=== PATIENT | male | born 1990 ===

== ENCOUNTER 2017-04-26 05:29 | Emergency (ER) | payer OTHER ==
[2017-04-26 05:47] VITALS: BP 137/72
[2017-04-26] MEDS ORDERED: ASPIRIN PO ONE (05:47)
[2017-04-26] MEDS ORDERED: ZOFRAN ODT PO ONE (05:53)
[2017-04-26 06:06] LABS: Basophils # (Auto) 0.1 K/mm3 (0.0-0.1); Basophils % (Auto) 0.8 % (0.0-1.8); Eosinophils % (Auto) 0.3 % (0.0-4.3); Hematocrit 48.2 % (35.5-45.6); Hemoglobin 15.8 gm/dl (11.8-15.2); Lymphocytes % (Auto) 21.1 % (13.4-35.0); Mean Corpuscular HGB Conc 33 % (32-34); Mean Corpuscular Hemoglobin 31 pg (28-32); Mean Corpuscular Volume 94 fl (84-94); Monocytes # (Auto) 0.5 K/mm3 (0.0-0.8); Monocytes % (Auto) 5.1 % (0.0-7.3); Platelet Count 223 K/mm3 (140-440); Red Blood Count 5.15 M/mm3 (3.65-5.03); Red Cell Distribution Width 13.5 % (13.2-15.2)
[2017-04-26 06:25] LABS: Bilirubin,Urine NEG (Negative); Blood,Urine SM (Negative); Color,Urine Yellow (Yellow); Mucus,Urine FEW /HPF; Protein,Urine <15 mg/dL mg/dL (Negative); Urobilinogen,Urine < 2.0 mg/dL (<2.0)
[2017-04-26 06:26] LABS: BUN/Creatinine Ratio 9; Blood Urea Nitrogen 9 mg/dL (9-20); Calcium 8.7 mg/dL (8.4-10.2); Hemolysis Index 11
[2017-04-26] MEDS ORDERED: TYLENOL PO ONE (06:57)
[2017-04-26] MEDS ORDERED: PHENERGAN PO ONE (07:13)
--- NOTE | 2017-04-26 07:20 | XRay Report ---
FINAL REPORT EXAM: XR CHEST ROUTINE 2V HISTORY: chest pain TECHNIQUE: PA and lateral chest radiographs PRIORS: None. FINDINGS: No mediastinal shift. Cardiac silhouette is not enlarged. No pneumothorax, effusion, or focal pulmonary opacity. No acute skeletal finding. IMPRESSION: No focal pulmonary opacity.
--- NOTE | 2017-04-26 08:20 | Emergency Department Report ---
ED General Adult HPI - General Chief complaint: Chest Pain Stated complaint: CP; N/V Time Seen by Provider: 04/26/17 06:55 Source: patient Mode of arrival: Ambulatory Limitations: No Limitations - History of Present Illness Initial comments: Patient is a 27-year-old malesignificant past medical history who presents with left-sided chest pain has been going on for last 2 days. Patient states chest pain as a 6 out of 10 is an achy type of pain putting pressure on his chest makes it worse nothing makes it better. Patient also states that he has had some nausea and vomiting with the chest pain. The chest pain does not radiate anywhere he has not tried any [id number] medications for the pain. He says the pain occurred after he was lifting boxes at his house. - Related Data Previous Rx's Medication Instructions Recorded Last Taken Type Diclofenac Sodium [Voltaren] 100 gm TP Q6H #1 gel..gram. 04/26/17 Unknown Rx Promethazine [Phenergan TAB] 25 mg PO Q6HR PRN #20 tab 04/26/17 Unknown Rx Allergies Allergy/AdvReac Type Severity Reaction Status Date / Time No Known Allergies Allergy Verified 06/09/15 10:52 ED Review of Systems ROS: Stated complaint: CP; N/V Other details as noted in HPI Constitutional: denies: chills, fever Eyes: denies: eye pain, eye discharge, vision change ENT: denies: ear pain, throat pain Respiratory: denies: cough, shortness of breath, wheezing Cardiovascular: chest pain. denies: palpitations Endocrine: no symptoms reported Gastrointestinal: nausea, vomiting. denies: abdominal pain, diarrhea Genitourinary: denies: urgency, dysuria Musculoskeletal: denies: back pain, joint swelling, arthralgia Skin: denies: rash, lesions Neurological: denies: headache, weakness, paresthesias Psychiatric: denies: anxiety, depression Hematological/Lymphatic: denies: easy bleeding, easy bruising ED Past Medical Hx - Past Medical History Previous Medical History?: Yes Hx Asthma: Yes - Surgical History Past Surgical History?: Yes Hx Appendectomy: Yes - Social History Smoking Status: Current Every Day Smoker Substance Use Type: Alcohol, Marijuana - Medications Home Medications: Home Medications Medication Instructions Recorded Confirmed Last Taken Type Diclofenac Sodium [Voltaren] 100 gm TP Q6H #1 gel..gram. 04/26/17 Unknown Rx Promethazine [Phenergan TAB] 25 mg PO Q6HR PRN #20 tab 04/26/17 Unknown Rx ED Physical Exam - General Limitations: No Limitations General appearance: alert, in no apparent distress - Head Head exam: Present: atraumatic, normocephalic - Eye Eye exam: Present: normal appearance - ENT ENT exam: Present: mucous membranes moist - Neck Neck exam: Present: normal inspection - Respiratory Respiratory exam: Present: normal lung sounds bilaterally, chest wall tenderness. Absent: respiratory distress - Cardiovascular Cardiovascular Exam: Present: regular rate, normal rhythm. Absent: systolic murmur, diastolic murmur, rubs, gallop - GI/Abdominal GI/Abdominal exam: Present: soft, normal bowel sounds - Rectal Rectal exam: Present: deferred - Extremities Exam Extremities exam: Present: normal inspection - Back Exam Back exam: Present: normal inspection - Neurological Exam Neurological exam: Present: alert, oriented X3 - Psychiatric Psychiatric exam: Present: normal affect, normal mood - Skin Skin exam: Present: warm, dry, intact, normal color. Absent: rash ED Course Vital Signs 04/26/17 05:40 Temperature 98.3 F Pulse Rate 89 Blood Pressure 137/72 O2 Sat by Pulse 98 Oximetry ED Medical Decision Making - Lab Data Result diagrams: 04/26/17 05:54 04/26/17 05:54 Lab Results 04/26/17 04/26/17 04/26/17 Range/Units 05:54 05:54 06:05 WBC 9.5 (4.5-11.0) K/mm3 RBC 5.15 H (3.65-5.03) M/mm3 Hgb 15.8 H (11.8-15.2) gm/dl Hct 48.2 H (35.5-45.6) % MCV 94 (84-94) fl MCH 31 (28-32) pg MCHC 33 (32-34) % RDW 13.5 (13.2-15.2) % Plt Count 223 (140-440) K/mm3 Lymph % (Auto) 21.1 (13.4-35.0) % [place] % (Auto) 5.1 (0.0-7.3) % Eos % (Auto) 0.3 (0.0-4.3) % Baso % (Auto) 0.8 (0.0-1.8) % Lymph # 2.0 (1.2-5.4) K/mm3 [place] # 0.5 (0.0-0.8) K/mm3 Eos # 0.0 (0.0-0.4) K/mm3 Baso # 0.1 (0.0-0.1) K/mm3 Seg Neutrophils % 72.7 H (40.0-70.0) % Seg Neutrophils # 6.9 (1.8-7.7) K/mm3 Sodium 141 (137-145) mmol/L Potassium 4.0 (3.6-5.0) mmol/L Chloride 99.7 (98-107) mmol/L Carbon Dioxide 22 (22-30) mmol/L Anion Gap 23 mmol/L BUN 9 (9-20) mg/dL Creatinine 1.0 (0.8-1.5) mg/dL Estimated GFR > 60 ml/min BUN/Creatinine Ratio 9 % Glucose 77 (75-100) mg/dL Calcium 8.7 (8.4-10.2) mg/dL Troponin T < 0.010 (0.00-0.029) ng/mL Urine Color Yellow (Yellow) Urine Turbidity Clear (Clear) Urine pH 5.0 (5.0-7.0) Ur Specific Munith 1.019 (1.003-1.030) Urine Protein <15 mg/dl (Negative) mg/dL Urine Glucose (UA) Neg (Negative) mg/dL Urine Ketones 20 (Negative) mg/dL Urine Blood Sm (Negative) Urine Nitrite Neg (Negative) Urine Bilirubin Neg (Negative) Urine Urobilinogen < 2.0 (<2.0) mg/dL Ur Leukocyte Esterase Neg (Negative) Urine WBC (Auto) 2.0 (0.0-6.0) /HPF Urine RBC (Auto) 1.0 (0.0-6.0) /HPF Urine Mucus Few /HPF - EKG Data -: EKG Interpreted by De - EKG Data 04/26/17 08:21 EKG shows sinus rhythm no ST segment elevation no T-wave inversion normal axis. - Radiology Data Radiology results: report reviewed, image reviewed Chest x-ray: Shows no acute cardiopulmonary disease - Medical Decision Making Chief medical diagnosis: Costochondritis Differential medical diagnosis: Pneumonia, arrhythmia, non-STEMI I will get CBC, CMP, oral pain medication, EKG, chest x-ray, troponin Patient is feeling better I will send patient home with oral pain medication and antinausea medicine discussed plan with patient and patient agrees to plan additional verbal discharge instructions were given. Critical care attestation.: If time is entered above; I have spent that time in minutes in the direct care of this critically ill patient, excluding procedure time. ED Disposition Clinical Impression: Chest wall pain Disposition: DC-01 TO HOME OR SELFCARE Is pt being admited?: No Does the pt Need Aspirin: No Condition: Stable Instructions: Chest Pain (ED), Costochondritis (ED), Acute Nausea and Vomiting (ED) Prescriptions: Diclofenac Sodium [Voltaren] 100 gm TP Q6H #1 gel..gram. Promethazine [Phenergan TAB] 25 mg PO Q6HR PRN #20 tab PRN Reason: Nausea Referrals: DWAYNE ENRIQUEZ MD [Staff Physician] - 3-5 Days
[2017-04-26] MEDS ORDERED: ASPIRIN ONE (08:50)
== END 2017-04-26 09:38 | disposition home or self-care (01) ==
LOC: ED 05:29
DX: R07.89 Other chest pain (principal); R11.2 Nausea with vomiting, unspecified; J45.909 Unspecified asthma, uncomplicated; F17.200 Nicotine dependence, unspecified, uncomplicated; F12.10 Cannabis abuse, uncomplicated
CPT/HCPCS: 36415; 71046; 80048; 81001; 84484; 85025; 93005; 93010; Q0162; Q0169

== ENCOUNTER 2017-07-13 05:13 | Emergency (ER) | payer SELFPAY ==
[2017-07-13 06:22] VITALS: BP 99/79
[2017-07-13] MEDS ORDERED: ULTRAM PO ONE (06:41)
[2017-07-13] MEDS ORDERED: TRIMOX PO ONE (06:41)
--- NOTE | 2017-07-13 06:46 | Emergency Department Report ---
ED ENT HPI - General Chief complaint: Dental/Oral Stated complaint: TOOTHACHE Time Seen by Provider: 07/13/17 06:41 Source: patient Mode of arrival: Ambulatory Limitations: No Limitations - History of Present Illness Initial comments: Patient is 27-year-old -[place] male with a history of dental caries who presents for acute on chronic episode of same patient complains of left lower #17 with mild gum swelling and aching 7/10 for past week patient has not seen dentist states last time in ED Prescription for pain medicine but did not get the antibiotics request referral to dental at this time, there is no fever or chills no n/v no ear or throat pain MD complaint: tooth pain Onset/Timin -: month(s) Location: tooth # (17) Severity: moderate Severity scale (0 -10): 6 Quality: aching Consistency: constant Improves with: none Worsens with: other (hot and cold sensation ) - Related Data Previous Rx's Medication Instructions Recorded Last Taken Type Diclofenac Sodium [Voltaren] 100 gm TP Q6H #1 gel..gram. 04/26/17 Unknown Rx Promethazine [Phenergan TAB] 25 mg PO Q6HR PRN #20 tab 04/26/17 Unknown Rx Amoxicillin [Trimox CAP] 500 mg PO ONCE #30 capsule 07/13/17 Unknown Rx Chlorhexidine Mouthwash [Peridex] 118 ml MM BID PRN #1 bottle 07/13/17 Unknown Rx traMADol [Ultram 50 MG tab] 50 mg PO ONCE #15 tablet 07/13/17 Unknown Rx Allergies Allergy/AdvReac Type Severity Reaction Status Date / Time No Known Allergies Allergy Verified 06/09/15 10:52 ED Dental HPI - General Chief complaint: Dental/Oral Stated complaint: TOOTHACHE Time Seen by Provider: 07/13/17 06:41 Source: patient Mode of arrival: Ambulatory Limitations: No Limitations - Related Data Previous Rx's Medication Instructions Recorded Last Taken Type Diclofenac Sodium [Voltaren] 100 gm TP Q6H #1 gel..gram. 04/26/17 Unknown Rx Promethazine [Phenergan TAB] 25 mg PO Q6HR PRN #20 tab 04/26/17 Unknown Rx Amoxicillin [Trimox CAP] 500 mg PO ONCE #30 capsule 07/13/17 Unknown Rx Chlorhexidine Mouthwash [Peridex] 118 ml MM BID PRN #1 bottle 07/13/17 Unknown Rx traMADol [Ultram 50 MG tab] 50 mg PO ONCE #15 tablet 07/13/17 Unknown Rx Allergies Allergy/AdvReac Type Severity Reaction Status Date / Time No Known Allergies Allergy Verified 06/09/15 10:52 ED Review of Systems ROS: Stated complaint: TOOTHACHE Other details as noted in HPI Constitutional: denies: chills, fever Eyes: denies: eye pain, eye discharge, vision change ENT: dental pain. denies: ear pain, throat pain Respiratory: denies: cough, shortness of breath, wheezing Cardiovascular: denies: chest pain, palpitations Endocrine: no symptoms reported Gastrointestinal: denies: abdominal pain, nausea, diarrhea Genitourinary: denies: urgency, dysuria Musculoskeletal: denies: back pain, joint swelling, arthralgia Skin: denies: rash, lesions Neurological: denies: headache, weakness, paresthesias Psychiatric: denies: anxiety, depression Hematological/Lymphatic: denies: easy bleeding, easy bruising ED Past Medical Hx - Past Medical History Previous Medical History?: Yes Hx Asthma: Yes - Surgical History Past Surgical History?: Yes Hx Appendectomy: Yes (2007) - Social History Smoking Status: Current Every Day Smoker Substance Use Type: None - Medications Home Medications: Home Medications Medication Instructions Recorded Confirmed Last Taken Type Diclofenac Sodium [Voltaren] 100 gm TP Q6H #1 gel..gram. 04/26/17 Unknown Rx Promethazine [Phenergan TAB] 25 mg PO Q6HR PRN #20 tab 04/26/17 Unknown Rx Amoxicillin [Trimox CAP] 500 mg PO ONCE #30 capsule 07/13/17 Unknown Rx Chlorhexidine Mouthwash [Peridex] 118 ml MM BID PRN #1 bottle 07/13/17 Unknown Rx traMADol [Ultram 50 MG tab] 50 mg PO ONCE #15 tablet 07/13/17 Unknown Rx ED Physical Exam - General Limitations: No Limitations General appearance: alert, in no apparent distress - Head Head exam: Present: atraumatic, normocephalic - Eye Eye exam: Present: normal appearance, PERRL, EOMI Pupils: Present: normal accommodation - ENT ENT exam: Present: normal exam, normal orophraynx, mucous membranes moist, TM's normal bilaterally, normal external ear exam - Expanded ENT Exam Expanded Mouth exam: Present: trismus Teeth exam: Present: dental caries, dental tenderness # (17) Throat exam: Positive: normal inspection - Neck Neck exam: Present: normal inspection, full ROM. Absent: lymphadenopathy, thyromegaly - Respiratory Respiratory exam: Present: normal lung sounds bilaterally. Absent: respiratory distress, wheezes, stridor - Cardiovascular Cardiovascular Exam: Present: regular rate, normal rhythm. Absent: systolic murmur, diastolic murmur, rubs, gallop - GI/Abdominal GI/Abdominal exam: Present: soft, normal bowel sounds - Rectal Rectal exam: Present: deferred - Extremities Exam Extremities exam: Present: normal inspection - Back Exam Back exam: Present: normal inspection - Neurological Exam Neurological exam: Present: alert, oriented X3 - Psychiatric Psychiatric exam: Present: normal affect, normal mood - Skin Skin exam: Present: warm, dry, intact, normal color. Absent: rash ED Course Vital Signs 07/13/17 06:16 Temperature 97.6 F Pulse Rate 54 L Respiratory 18 Rate Blood Pressure 99/79 O2 Sat by Pulse 98 Oximetry ED Medical Decision Making - Medical Decision Making this infected dental carries plan: amoxicillin , tramadol, peridex, follow up with [facility] dental services. Critical care attestation.: If time is entered above; I have spent that time in minutes in the direct care of this critically ill patient, excluding procedure time. ED Disposition Clinical Impression: Infected dental caries Disposition: - TO HOME OR SELFCARE Is pt being admited?: No Does the pt Need Aspirin: No Condition: Good Instructions: Dental Caries (ED) Prescriptions: Amoxicillin [Trimox CAP] 500 mg PO ONCE #30 capsule Chlorhexidine Mouthwash [Peridex] 118 ml MM BID PRN #1 bottle PRN Reason: pain traMADol [Ultram 50 MG tab] 50 mg PO ONCE #15 tablet Referrals: PRIMARY CARE,MD [Primary Care Provider] - 3-5 Days Forms: Work/School Release Form(ED) Time of Disposition: 07:00
== END 2017-07-13 07:27 | disposition home or self-care (01) ==
LOC: ED 05:13
DX: K02.9 Dental caries, unspecified (principal); J45.909 Unspecified asthma, uncomplicated; F17.200 Nicotine dependence, unspecified, uncomplicated
CPT/HCPCS: 99282

== ENCOUNTER 2017-10-23 12:19 | Emergency (ER) | payer SELFPAY ==
[2017-10-23 12:26] VITALS: BP 137/85
== END 2017-10-23 17:50 | disposition left against medical advice (07) ==
LOC: ED 12:19
DX: R05 Cough (principal); R06.00 Dyspnea, unspecified; Z53.21 Procedure and treatment not carried out due to patient leaving prior to being seen by health care provider

== ENCOUNTER 2019-06-05 14:11 | Emergency (ER) | payer SELFPAY ==
[2019-06-05 14:19] VITALS: BP 148/88
--- NOTE | 2019-06-05 16:08 | Emergency Department Report ---
ED General Adult HPI - General Chief complaint: Urogenital-Male Stated complaint: BACK PAIN/PENIS DISCHARGE Time Seen by Provider: 06/05/19 16:05 Source: patient Mode of arrival: Ambulatory Limitations: No Limitations - History of Present Illness Initial comments: 29-year-old -British male presents to the emergency room complaining of back pain x1 week and clear discharge from penis. Patient states that he had a fall 2 weeks ago and pain in his lower back has gotten worse in the last few days. Patient also comes in stating that he thinks his girlfriend gave him chlamydia. Patient reports his pain is a 6 out of 10 for his back. Onset/Timin -: week(s) (Back pain) Severity scale (0 -10): 6 Quality: aching Improves with: none Worsens with: movement - Related Data Previous Rx's Medication Instructions Recorded Last Taken Type Diclofenac Sodium [Voltaren] 100 gm TP Q6H #1 gel..gram. 04/26/17 Unknown Rx Promethazine [Phenergan TAB] 25 mg PO Q6HR PRN #20 tab 04/26/17 Unknown Rx Amoxicillin 500 mg PO TID #30 capsule 07/13/17 Unknown Rx Amoxicillin [Trimox CAP] 500 mg PO Q8H #15 capsule 07/13/17 Unknown Rx Chlorhexidine Mouthwash [Peridex] 15 ml MM BID #1 bottle 07/13/17 Unknown Rx traMADoL [Ultram] 50 mg PO Q8HR PRN #15 tablet 07/13/17 Unknown Rx Allergies Allergy/AdvReac Type Severity Reaction Status Date / Time No Known Allergies Allergy Verified 06/05/19 14:14 ED Review of Systems ROS: Stated complaint: BACK PAIN/PENIS DISCHARGE Other details as noted in HPI Comment: All other systems reviewed and negative ED Past Medical Hx - Past Medical History Hx Asthma: Yes - Surgical History Hx Appendectomy: Yes (2007) - Social History Smoking Status: Current Every Day Smoker Substance Use Type: Alcohol, Marijuana - Medications Home Medications: Home Medications Medication Instructions Recorded Confirmed Last Taken Type Diclofenac Sodium [Voltaren] 100 gm TP Q6H #1 gel..gram. 04/26/17 Unknown Rx Promethazine [Phenergan TAB] 25 mg PO Q6HR PRN #20 tab 04/26/17 Unknown Rx Amoxicillin 500 mg PO TID #30 capsule 07/13/17 Unknown Rx Amoxicillin [Trimox CAP] 500 mg PO Q8H #15 capsule 07/13/17 Unknown Rx Chlorhexidine Mouthwash [Peridex] 15 ml MM BID #1 bottle 07/13/17 Unknown Rx traMADoL [Ultram] 50 mg PO Q8HR PRN #15 tablet 07/13/17 Unknown Rx ED Physical Exam - General Limitations: No Limitations General appearance: alert, in distress - Head Head exam: Present: atraumatic, normocephalic - Eye Eye exam: Present: normal appearance - ENT ENT exam: Present: mucous membranes moist - Neck Neck exam: Present: normal inspection - Back Exam Back exam: Present: tenderness, vertebral tenderness - Neurological Exam Neurological exam: Present: alert, oriented X3 - Psychiatric Psychiatric exam: Present: normal affect, normal mood - Skin Skin exam: Present: warm, dry, intact, normal color. Absent: rash ED Course Vital Signs 06/05/19 14:16 Temperature 97.6 F Pulse Rate 99 H Respiratory 20 Rate Blood Pressure 148/88 O2 Sat by Pulse 95 Oximetry ED Medical Decision Making - Medical Decision Making 29-year-old -[place] male presents to the emergency room complaining of back pain x1 week and clear discharge from penis. Patient states that he had a fall 2 weeks ago and pain in his lower back has gotten worse in the last few d ays. Patient also comes in stating that he thinks his girlfriend gave him chlamydia. Patient reports his pain is a 6 out of 10 for his back. This provider ordered x-ray of the lumbar sacral. Patient states he rather not be seen for his back if he cannot be seen for his penile discharge. Patient decided to elope. Critical care attestation.: If time is entered above; I have spent that time in minutes in the direct care of this critically ill patient, excluding procedure time. ED Disposition Clinical Impression: Back pain Disposition: Z- ELOPED Is pt being admited?: No Does the pt Need Aspirin: No Condition: Stable Referrals: PRIMARY CARE, [Primary Care Provider] - 3-5 Days
== END 2019-06-05 17:15 | disposition left against medical advice (07) ==
LOC: ED 14:11
DX: M54.5 Low back pain (principal); R36.9 Urethral discharge, unspecified; J45.909 Unspecified asthma, uncomplicated; F17.200 Nicotine dependence, unspecified, uncomplicated; F12.10 Cannabis abuse, uncomplicated; Z90.49 Acquired absence of other specified parts of digestive tract; Z79.899 Other long term (current) drug therapy
CPT/HCPCS: 99282

== ENCOUNTER 2020-09-05 04:43 | Emergency (ER) | payer SELFPAY | END 2020-09-05 07:00 | disposition left against medical advice (07) | LOC: ED 04:43 | DX: K08.89 Other specified disorders of teeth and supporting structures (principal); Z53.21 Procedure and treatment not carried out due to patient leaving prior to being seen by health care provider ==

== ENCOUNTER 2021-05-31 07:34 | Emergency (ER) | payer SELFPAY ==
--- NOTE | 2021-05-31 09:05 | Emergency Department Report ---
ED General Adult HPI - General Chief complaint: Chest Pain Stated complaint: CHEST PAIN PUI?: No Time Seen by Provider: 05/31/21 08:08 Source: patient Mode of arrival: Ambulatory Limitations: No Limitations - Related Data Previous Rx's Medication Instructions Recorded Last Taken Type Diclofenac Sodium [Voltaren] 100 gm TP Q6H #1 gel..gram. 04/26/17 Unknown Rx Promethazine [Phenergan TAB] 25 mg PO Q6HR PRN #20 tab 04/26/17 Unknown Rx Amoxicillin 500 mg PO TID #30 capsule 07/13/17 Unknown Rx Amoxicillin [Trimox CAP] 500 mg PO Q8H #15 capsule 07/13/17 Unknown Rx Chlorhexidine Mouthwash [Peridex] 15 ml MM BID #1 bottle 07/13/17 Unknown Rx traMADoL [Ultram] 50 mg PO Q8HR PRN #15 tablet 07/13/17 Unknown Rx Naproxen 500 mg PO BID #20 tablet 10/24/19 Unknown Rx Allergies Allergy/AdvReac Type Severity Reaction Status Date / Time No Known Allergies Allergy Verified 06/05/19 14:14 ED Review of Systems ROS: Stated complaint: CHEST PAIN Other details as noted in HPI Comment: All other systems reviewed and negative ED Past Medical Hx - Past Medical History Previous Medical History?: Yes Hx Asthma: Yes - Surgical History Past Surgical History?: No Hx Appendectomy: Yes (2007) - Family History Family history: no significant - Social History Smoking Status: Never Smoker Substance Use Type: None - Medications Home Medications: Home Medications Medication Instructions Recorded Confirmed Last Taken Type Diclofenac Sodium [Voltaren] 100 gm TP Q6H #1 gel..gram. 04/26/17 Unknown Rx Promethazine [Phenergan TAB] 25 mg PO Q6HR PRN #20 tab 04/26/17 Unknown Rx Amoxicillin 500 mg PO TID #30 capsule 07/13/17 Unknown Rx Amoxicillin [Trimox CAP] 500 mg PO Q8H #15 capsule 07/13/17 Unknown Rx Chlorhexidine Mouthwash [Peridex] 15 ml MM BID #1 bottle 07/13/17 Unknown Rx traMADoL [Ultram] 50 mg PO Q8HR PRN #15 tablet 07/13/17 Unknown Rx Naproxen 500 mg PO BID #20 tablet 10/24/19 Unknown Rx ED Physical Exam - General Limitations: No Limitations General appearance: alert, in no apparent distress - Head Head exam: Present: atraumatic, normocephalic - Eye Eye exam: Present: normal appearance - ENT ENT exam: Present: mucous membranes moist - Neck Neck exam: Present: normal inspection - Respiratory Respiratory exam: Present: normal lung sounds bilaterally, wheezes. Absent: respiratory distress - Cardiovascular Cardiovascular Exam: Present: regular rate, normal rhythm. Absent: systolic murmur, diastolic murmur, rubs, gallop - GI/Abdominal GI/Abdominal exam: Present: soft, normal bowel sounds - Rectal Rectal exam: Present: deferred - Extremities Exam Extremities exam: Present: normal inspection - Back Exam Back exam: Present: normal inspection - Neurological Exam Neurological exam: Present: alert, oriented X3 - Psychiatric Psychiatric exam: Present: normal affect, normal mood - Skin Skin exam: Present: warm, dry, intact, normal color. Absent: rash ED Course Vital Signs 05/31/21 08:00 Temperature 97.7 F Pulse Rate 92 H Respiratory 16 Rate Blood Pressure 139/92 O2 Sat by Pulse 98 Oximetry ED Medical Decision Making - Radiology Data Radiology results: report reviewed, image reviewed nap - Differential Diagnosis uri; ro pna Critical care attestation.: If time is entered above; I have spent that time in minutes in the direct care of this critically ill patient, excluding procedure time. ED Disposition Clinical Impression: Non-cardiac chest pain Disposition: HOME / SELF CARE / HOMELESS Is pt being admited?: No Does the pt Need Aspirin: No Condition: Stable Instructions: Nonspecific Chest Pain, Adult Additional Instructions: X-ray and EKG are normal today-vital signs normal Motrin or Tylenol if pain continues. Follow-up with PCP in 48 hours There is referral below Referrals: CRISTIANO LARKIN MD [Staff Physician] - 3-5 Days Time of Disposition: 09:20
[2021-05-31 09:49] VITALS: BP 135/87
--- NOTE | 2021-05-31 10:41 | XRay Report ---
XR chest routine 2V INDICATION / CLINICAL INFORMATION: sob COMPARISON: None available. FINDINGS: SUPPORT DEVICES: None. HEART / MEDIASTINUM: No significant abnormality. LUNGS / PLEURA: Lungs are clear. Costophrenic sulci are sharp. No pneumothorax. ADDITIONAL FINDINGS: No significant additional findings. IMPRESSION: 1. No acute findings. Signer Name: Sukhwinder Bell MD Signed: 05/31/2021 10:36 AM Workstation Name: [id number]
--- NOTE | 2021-06-01 20:17 | Electrocardiograph Report ---
[facility] Test Date: 2021-05-31 Test Time: 08:04:49 Pat Name: DARREN ROBBINS Department: Room: Gender: M Compliance Review Specialist: ELODIA : 1990 Requested By: SOUMYA ROBLERO Order Number: [id number] Reading MD: Srinivasan Stanton Measurements Intervals [place] Rate: 79 P: 66 MS: 152 QRS: 37 QRSD: 100 T: 50 QT: 354 QTc: 407 Interpretive Statements Sinus rhythm Incomplete right bundle branch block No previous ECG available for comparison Electronically Signed On 06-01-2021 20:17:31 EDT by Srinivasan Stanton
== END 2021-05-31 09:49 | disposition home or self-care (01) ==
LOC: ED 07:34
DX: R07.89 Other chest pain (principal); J45.909 Unspecified asthma, uncomplicated; Z98.890 Other specified postprocedural states; Z79.899 Other long term (current) drug therapy
CPT/HCPCS: 71046; 93005; 99282; 99283